=== PATIENT | female | born 1995 | race Caucasian/White ===

== ENCOUNTER 2024-12-18 03:57 | Outpatient (CLI) | payer MEDICAID, SELFPAY ==
[2024-12-18 12:27] LABS: HCT 43.2 % (36.0-46.0); HGB 14.2 g/dL (11.2-15.7); MCH 29.5 pg (27.0-33.0); MCHC 32.9 % (32.0-36.0); MCV 90 fL (80-95); MPV 11.2 fL (8.0-11.0); Platelet Count 255 10^3/uL (130-400); RBC 4.82 10^6/uL (3.93-5.22); RDW 12.8 % (11.7-14.6); RDW-SD 42.6 fL; WBC 6.55 10^3/uL (4.4-10.8)
[2024-12-18 12:46] LABS: Hemoglobin A1C 5.3 % (<5.7)
[2024-12-18 13:08] LABS: ALT 15 U/L (14-59); AST 10 U/L (15-37); Alkaline Phosphatase 104 U/L (46-116); Anion Gap 7.2 mmol/L (3-11); BUN 12 mg/dL (7-18); Bilirubin, Total 0.6 mg/dL (0.2-1.0); CO2 26.8 mmol/L (21.0-32.0); CREATININE 0.9 mg/dL (0.55-1.02); Calcium 9.8 mg/dL (8.5-10.1); Chloride 105 mmol/L (98-107); Estimated GFR 89.86 (mL/min/1.73m2); Glucose 102 mg/dL (74-106); Potassium 4.2 mmol/L (3.5-5.1); Sodium 139 mmol/L (136-145); TSH (W/Ref FT4) 1.57 uIU/mL (0.36-3.74); Total Protein 7.5 g/dL (6.4-8.2)
[2024-12-18 21:20] LABS: Calculated LDL 137 mg/dL (<100); Cholesterol 205 mg/dL (<200); HDL Cholesterol 49 mg/dL (>or=50); Triglyceride 96 mg/dL (<150)
[2024-12-18 21:40] LABS: FSH 6.5 mIU/mL (See Note); LH 9.5 mIU/mL (See Note)
== END 2024-12-18 03:58 | disposition home or self-care (01) ==
LOC: LOS 03:57
PROVIDERS: PCP Nurse Practitioner Family; Visit Provider Nurse Practitioner Family
DX: Z13.220 Encounter for screening for lipoid disorders (principal); Z13.1 Encounter for screening for diabetes mellitus; L74.9 Eccrine sweat disorder, unspecified
CPT/HCPCS: 36415; 80053; 80061; 85027; 83001; 83002; 83036; 84443

== ENCOUNTER 2025-02-21 09:02 | Outpatient (CLI) | payer MEDICAID, SELFPAY | END 2025-02-21 09:03 | disposition home or self-care (01) | PROVIDERS: PCP Nurse Practitioner Family; Visit Provider Nurse Practitioner Family | DX: R07.9 Chest pain, unspecified (principal); R00.2 Palpitations | CPT/HCPCS: 93270 ==

== ENCOUNTER 2025-03-26 08:22 | Outpatient (CLI) | payer MEDICAID, SELFPAY ==
--- NOTE | 2025-03-26 09:24 | W.CARDEVENT ---
Date of service: 03/26/25 Time of Service: 09:24 Cardiac Event Recorder Referring Provider:: Viktoria Anand Indications:: Palpitations Cardiac Event Note: This is a cardiac event monitor. Patient was monitored for 27 days and 22 hours Rhythm throughout was sinus. Average heart rate overall was 83. Minimum was 49, maximum 134 There were rare ventricular ectopic beats There was no atrial fibrillation, no SVT, no high-grade AV block, no pauses greater than 3 seconds Sinus arrhythmia and winky block were noted during sleep The majority of symptoms correlated to sinus rhythm. Rarely some PVCs were symptomatic
== END 2025-03-26 08:23 | disposition home or self-care (01) ==
LOC: CARDOPNVT 08:22
PROVIDERS: PCP Nurse Practitioner Family; Visit Provider Internal Medicine Cardiovascular Disease
DX: R07.9 Chest pain, unspecified (principal); R00.2 Palpitations
CPT/HCPCS: 93272